=== PATIENT | female | born 1945 | race Caucasian/White ===

== ENCOUNTER 2020-09-19 13:19 | Emergency (ER) | payer MEDICARE ==
--- NOTE | 2020-09-19 13:23 | ERPHSYRPT ---
- History of Present Illness Time Seen by Provider: 09/19/20 13:22 Source: patient, family Exam Limitations: no limitations Physician History: This is a 74-year-old white female who sees a grey goods tester, Dr. Whelan, and is taking Coumadin daily. On 09/18/2020 patient had a elevated INR 8.62. She has not been symptomatic from this. Patient states she has not changed her medication dosing up until this point. Since 09/18/2020 however, patient has stopped taking her Coumadin as instructed. This morning, 09/19/2020, the patient had a repeat INR of over 10. Patient states that she is not staying in the hospital at the time of this interview. Denies any spontaneous bleeding. Timing/Duration: other (Patient was contacted by her grey goods tester office and told to go to the nearest emergency department.) Associated Symptoms: denies symptoms Allergies/Adverse Reactions: Sulfa (Sulfonamide Antibiotics) Allergy (Verified 09/19/20 13:36) Home Medications: Alendronate Sodium 70 mg [Fosamax 70 MG] 1 tab PO WEEKLY 09/19/20 [History] Amlodipine Besylate 5 mg [Norvasc 5 mg] 1 tab PO DAILY 09/19/20 [History] Carvedilol 6.25 mg [Coreg 6.25 MG] 2 tablet PO BID 09/19/20 [History] Empagliflozin [Jardiance] 1 tab PO DAILY 09/19/20 [History] Ezetimibe 10 mg [Zetia 10 MG] 1 tab PO DAILY 09/19/20 [History] Fluoxetine HCl 20 mg [Prozac 20 MG] 1 tab PO DAILY 09/19/20 [History] Levothyroxine Sodium 1 tab PO DAILY 09/19/20 [History] Liraglutide [Victoza 2-Mohamud] 1.2 mg SQ DAILY 09/19/20 [History] Magnesium Oxide 1 tab PO BID 09/19/20 [History] Potassium Chloride 1 tab PO DAILY 09/19/20 [History] Pravastatin Sodium 1 tab PO DAILY 09/19/20 [History] Travel Risk - International Travel Have you traveled outside of the country in past 3 weeks: No - Coronavirus Screening Are you exhibiting any of the following symptoms?: No Close contact with a COVID-19 positive Pt in past 14-21 Days: No - Vaccine Status Have you recieved a Covid-19 vaccination: No - Review of Systems Constitutional: No Symptoms Eyes: No Symptoms Ears, Nose, & Throat: No Symptoms Respiratory: No Symptoms Cardiac: No Symptoms Abdominal/Gastrointestinal: No Symptoms Genitourinary Symptoms: No Symptoms Musculoskeletal: No Symptoms Skin: No Symptoms Neurological: No Symptoms Psychological: No Symptoms Endocrine: No Symptoms Hematologic/Lymphatic: No Symptoms Immunological/Allergic: No Symptoms All Other Systems: Reviewed and Negative - Past Medical History Pertinent Past Medical History: Yes - Past Surgical History Past Surgical History: Yes - Nursing Vital Signs Nursing Vital Signs: Initial Vital Signs Temperature 96.9 F 09/19/20 13:25 Pulse Rate 61 09/19/20 13:25 Respiratory Rate 18 09/19/20 13:25 Blood Pressure 133/50 09/19/20 13:25 O2 Sat by Pulse Oximetry 95 09/19/20 13:25 Pain Scale Pain Intensity 0 - Physical Exam General Appearance: no apparent distress, alert, obese Eye Exam: PERRL/EOMI, eyes nml inspection Ears, Nose, Throat Exam: normal ENT inspection, moist mucous membranes Neck Exam: normal inspection, non-tender, supple, full range of motion Respiratory Exam: normal breath sounds, lungs clear, No chest tenderness, No respiratory distress Cardiovascular Exam: regular rate/rhythm, normal heart sounds, normal peripheral pulses Gastrointestinal/Abdomen Exam: soft, normal bowel sounds, No tenderness Pelvic Exam: not done Rectal Exam: not done Back Exam: normal inspection, normal range of motion, No CVA tenderness, No vertebral tenderness Extremity Exam: normal inspection, normal range of motion, pelvis stable Neurologic Exam: alert, oriented x 3, cooperative, 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, normal mood/affect, nml cerebellar function, nml station & gait, sensation nml Skin Exam: normal color, warm, dry Lymphatic Exam: No adenopathy SpO2 Interpretation: normal O2 Delivery: Room Air - Course Nursing assessment & vital signs reviewed: Yes Ordered Tests: Active Orders 24 hr Category Date Time Status CBC W DIFF Stat Lab 09/19/20 14:00 Completed Medication Summary Discontinued Medications Generic Name Dose Route Start Last Admin Trade Name Freq PRN Reason Stop Dose Admin Phytonadione Confirm 09/19/20 13:36 Vitamin K 10 Mg/Ml Administered 09/19/20 13:37 Dose 10 mg .ROUTE .STK-MED ONE Phytonadione 10 mg 09/19/20 13:39 09/19/20 13:40 Vitamin K 10 Mg/Ml IM 09/19/20 13:40 10 mg STAT ONE Administration Lab/Rad Data: Laboratory Result Diagrams 09/19/20 14:00 Laboratory Results 09/19/20 Range/Units 14:00 WBC 4.6 (4.0-10.5) K/mm3 RBC 4.12 (4.1-5.4) M/mm3 Hgb 12.1 (12.0-16.0) gm/dl Hct 38.0 (35-47) % MCV 92.2 (78-100) fl MCH 29.4 (26-32) pg MCHC 31.8 L (32-36) g/dl RDW 15.3 H (11.5-14.0) % Plt Count 173 (150-450) K/mm3 MPV 11.5 H (7.5-11.0) fl Gran % 63.9 (36.0-66.0) % Eos # (Auto) 0.16 (0-0.5) Absolute Lymphs (auto) 0.96 L (1.0-4.6) Absolute Monos (auto) 0.50 (0.0-1.3) Lymphocytes % 21.0 L (24.0-44.0) % Monocytes % 10.9 (0.0-12.0) % Eosinophils % 3.5 (0.00-5.0) % Basophils % 0.7 (0.0-0.4) % Absolute Granulocytes 2.92 (1.4-6.9) Basophils # 0.03 (0-0.4) - Progress Progress: unchanged Progress Note: 09/19/20 13:41 Medical decision making: This patient is asymptomatic. She is not having any spontaneous bleeding. However, I recommended to the patient receive vitamin K and be placed into the hospital for observation and monitoring of her vital signs and repeat CBC, PT/INR levels. I explained to her that there is a risk of spontaneously bleeding, significant bleeding/blood loss if she is to injure herself accidentally and would be best served by being in a hospital facility for monitoring. Patient states that she does not want to stay in the hospital anywhere. Her and her are thinking about what was recommended to them. She is aware that she will need to sign AGAINST MEDICAL ADVICE form if she chooses to leave. I did tell her that I would give her vitamin K to reverse the effects of Coumadin today and that she would need to return to the hospital tomorrow for repeat CBC, PT/INR level and may need to be reevaluated in the emergency department and given another dose of vitamin K if her INR level is still too high. The patient and her will let us know if she is going to leave [facility]. 09/19/20 14:09 A follow-up with patient and her significant other/spouse was made. Patient has opted to leave [facility] but will return to have her lab drawn tomorrow and wait for the result. Counseled pt/family regarding: lab results, diagnosis, need for follow-up - Departure Departure Disposition: AMA Clinical Impression: Elevated INR Condition: Stable Critical Care Time: No Referrals: ABEL ZAMORANO [Primary Care Provider] - Additional Instructions: Return to the hospital tomorrow for repeat CBC, PT/INR. Wait for the results to be called to the emergency department to see if a repeat dose of vitamin K is necessary through the emergency department. Return to the emergency department before tomorrow if you notice spontaneous bleeding.
[2020-09-19] MEDS ORDERED: Vitamin K 10 MG/ML ONE (13:36)
[2020-09-19] MEDS: Vitamin K 10 MG/ML IM ONE (13:40)
[2020-09-19 14:07] LABS: Absolute Neutrophil Ct (ANC) 2.92 (1.4-6.9); BASOPHIL % 0.7 % (0.0-0.4); Basophil (Absolute #) 0.03 (0-0.4); Eosinophil % 3.5 % (0.00-5.0); Eosinophil (Absolute #) 0.16 (0-0.5); Hemoglobin 12.1 gm/dl (12.0-16.0); Lymphocyte (Absolute #) 0.96 (1.0-4.6); Mean Cell Volume 92.2 fl (78-100); Mean Corpuscular Hemoglobin 29.4 pg (26-32); Mean Corpuscular Hgb Concent. 31.8 g/dl (32-36); Mean Platelet Volume 11.5 fl (7.5-11.0); Monocytes % 10.9 % (0.0-12.0); Neutrophil % 63.9 % (36.0-66.0); Platelet Count 173 K/mm3 (150-450); Red Blood Count 4.12 M/mm3 (4.1-5.4); Red Cell Distribution Width 15.3 % (11.5-14.0); White Blood Count 4.6 K/mm3 (4.0-10.5)
[2020-09-19 14:27] VITALS: BP 131/60; PULSE 62; O2SAT 96
== END 2020-09-19 14:28 | disposition left against medical advice (07) ==
LOC: ED 13:19
DX: R79.1 Abnormal coagulation profile (principal); Z79.899 Other long term (current) drug therapy
CPT/HCPCS: 36415; 85025; 85610; 96372; 99284; J3430